=== PATIENT | male | born 1960 | race Caucasian/White ===

== ENCOUNTER 2018-08-11 12:20 | Day surgery (SDC) | payer OTHER ==
[~2018-08-11] VITALS: Ht 177.8 cm; Wt 98.0 kg
[2018-08-11 12:50] VITALS: BP 134/76; Ht 177.8 cm; Wt 98.0 kg
[2018-08-11] MEDS ORDERED: OXYCODONE-APAP1 TAB PO (18:52)
--- NOTE | 2018-08-14 12:06 | OP ---
PATIENT NAME: RIMA VANEGAS MEDICAL RECORD: [id number] :62 LOCATION:[facility] ADMISSION DATE: SURGEON: TAYLER ALVAREZ MD DATE OF OPERATION: 08/11/2018 PREOPERATIVE DIAGNOSES: 1. Adhesive capsulitis of the right shoulder. 2. Impingement syndrome of the right shoulder. POSTOPERATIVE DIAGNOSES: 1. Adhesive capsulitis of the right shoulder. 2. Impingement syndrome of the right shoulder. PROCEDURES: 1. Arthroscopic distal clavicle excision under separate incision. 2. Arthroscopic subacromial decompression, acromioplasty, and bursectomy. 2. Manipulation under anesthesia prior to operative intervention. SURGEON: Tayler Alvarez MD [employer] AUT[employer]OTIVE TECHNICIAN: Marcelo Mckeon APN INTRAOPERATIVE COMPLICATIONS: None. SUMMARY OF PATHOLOGIC FINDINGS: The patient did have a very good release with manipulation under anesthesia, consistent with the preoperative diagnosis. The patient also had signs of impingement consistent with preoperative diagnosis. OPERATIVE SUMMARY IN DETAIL: After obtaining the appropriate preoperative orthopedic surgery consent as well as anesthetic consultation, evaluation and clearance, the patient was brought to the operating room and placed on the operating table in supine position. After general laryngeal mask airway was administered, the patient was placed in a right lateral decubitus position. All pressure points were well padded to include down leg peroneal pad as well as axillary roll. The patient was held firmly to the operating table using the vacuum pack suction system. Right upper extremity and shoulder were then prepped and draped in routine sterile fashion. The arm was held in the Arthrex traction boom at 30 degrees of forward flexion, 30 degrees of abduction, and 10 pounds of traction laterally. Arthroscopy was established in the glenohumeral joint for posterior portal. Anterior portal was established in the anterior safe interval. Diagnostic arthroscopy revealed the above findings. Please note prior to starting the case; however, the scapula was stabilized and the shoulder was manipulated first in abduction, then external rotation and internal rotation with excellent release. When arthroscopy was established, there was an obvious hemarthrosis from manipulation. This was cleared in its entirety and diagnostic arthroscopy showed relatively well maintained glenohumeral joint. Attention was then turned to the subacromial space. Through an accessory lateral portal, the [place] tissue ablation system was utilized to denude the undersurface of the acromion of all soft tissue elements and release the coracoacromial ligament. A 5-0 barrel bur was used to perform acromioplasty at the level of acromioclavicular joint. Having completed this, through a separate arthroscopic incision anteriorly under arthroscopic visualization, the distal clavicle excision was performed 1 cm. Having completed this, all bursa was removed anteriorly, posteriorly, laterally as well as superiorly. Having completed this, arthroscopy portals were closed in routine interrupted fashion, again done OPERATIVE REPORT [id number] RIMA VANEGAS by Marcelo Mckeon. Sterile dressings were applied. The patient was awakened and taken to the recovery room in stable condition. All final needle and sponge counts were correct. TRANSINT:[id number] Voice Confirmation ID: [id number] DOCUMENT ID: [id number] ANTONIO MADSEN, TAYLER DORANTES at 1206 CC: [id number] DICTATION DATE: 08/14/18 0909 HAND SUTURE WINDER: 08/14/18 1130 [facility] 08/11/[address] [address]
== END 2018-08-11 20:30 | disposition home or self-care (01) ==
LOC: D.OPS 12:20 → D.PAN 14:00 → D.OPS 14:00 → D.PAN 16:55 → D.OPS 16:55 → D.PAN 22:15 → D.OPS 22:15
DX: M75.41 Impingement syndrome of right shoulder (principal); M75.01 Adhesive capsulitis of right shoulder; M75.121 Complete rotator cuff tear or rupture of right shoulder, not specified as traumatic

== ENCOUNTER 2019-11-09 06:39 | Day surgery (SDC) | payer OTHER ==
[~2019-11-09] VITALS: Ht 177.8 cm; Wt 104.3 kg
[~2019-11-09 06:39] MED LIST: OXYCODONE-APAP1 TAB PO
[2019-11-09 07:22] VITALS: BP 184/112; Ht 177.8 cm; Wt 104.3 kg
[2019-11-09] MEDS ORDERED: HYDROCODON-ACE1 EA10 PO (10:18)
--- NOTE | 2019-11-09 10:37 | NUR ---
PATIENT CARE ASSUMED AT THIS TIME; REPORT TAKEN FROM Brenda OPLK RN.
--- NOTE | 2019-11-09 13:40 | NUR ---
1200 VANCOMYCIN INFUSING PER ALARUS PUMP. Bautista AMADOR R.N.
--- NOTE | 2019-11-11 09:27 | OP ---
PATIENT NAME: RIMA VANEGAS MEDICAL RECORD: [id number] :62 LOCATION:[facility] ADMISSION DATE: SURGEON: TAYLER ALVAREZ MD DATE OF OPERATION: 11/09/2019 PREOPERATIVE DIAGNOSES: Adhesive capsulitis, left shoulder impingement syndrome. 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 PROCEDURES: 1. Arthroscopic biceps tenotomy of the left shoulder. 2. Arthroscopic distal clavicle excision of the left shoulder - 1 cm under separate incision. 3. Arthroscopic subacromial decompression with acromioplasty and bursectomy. 4. Manipulation of the left shoulder. SURGEON: Tayler Alvarez MD INTRAOPERATIVE COMPLICATIONS: None. SUMMARY OF PATHOLOGIC FINDINGS: After manipulation, a formal arthroscopy showed the above-mentioned findings. The patient was noted to have chondromalacia of the humeral head, but not of the glenoid ironically. OPERATIVE SUMMARY IN DETAIL: After obtaining the appropriate preoperative orthopedic surgery consent as well as anesthetic consultation, evaluation and clearance, the patient was brought to the operating room and placed on the operating table in a supine position. After adequate general laryngeal mask airway was administered, the patient was placed in a right lateral decubitus position. All pressure points were well padded to include down peroneal pad as well as axillary roll. The patient was held firmly to the operating table using the vacuum pack suction system. Left upper extremity and shoulder were then prepped and draped in routine sterile fashion. The arm was held in the Arthrex traction boom at 30 degrees of forward flexion, 30 degrees of abduction with 10 pounds of traction laterally. At this point, the appropriate timeout was taken and agreed upon by all given the patient's unique identifiers. Prior to establishing arthroscopy, the scapula was stabilized and the shoulder was then manipulated, first in abduction followed by external rotation and internal rotation. Excellent release was obtained. Having completed this, arthroscopy was then established in the glenohumeral joint. The glenohumeral joint arthroscopy did show the patient to have substantial amounts of chondromalacia of the humeral head itself. After the anterior portal was established and bleeding had been completely lavaged, the rotator cuff was evaluated and found to be without full thickness tearing on the articular aspect. The biceps tendon was in a substantial near complete torn shape. It was therefore released at the bicipital labral junction. Having completed this, attention was turned to the subacromial space. While on subacromial space, [place] tissue ablation system was utilized to denude the undersurface of the acromion of all soft tissue elements and release of the coracoacromial ligament. A 5-0 barrel bur was then used to perform acromioplasty at the level of acromioclavicular joint. Then, through a separate OPERATIVE REPORT [id number] RIMA VANEGAS anterior portal, under direct arthroscopic visualization, distal clavicle was excised for 1 cm. Lastly, all subacromial bursitis was removed. The rotator cuff was very carefully evaluated and had approximately 30% to 40% depth tearing, but not full thickness. Having completed this, arthroscopy portals were closed in routine interrupted fashion using 4-0 Prolene. Sterile dressings were applied. The patient was awakened and taken to recovery room in stable condition. All final needle and sponge counts were correct. TRANSINT:[id number] Voice Confirmation ID: [id number] DOCUMENT ID: [id number] ANTONIO MADSEN, TAYLER DORANTES at 0927 CC: [id number] DICTATION DATE: 11/10/19 1302 UTILITY TELLER: 11/10/19 1708 [facility] 11/09/19 [id number] [place] [address]
== END 2019-11-09 13:10 | disposition home or self-care (01) ==
LOC: D.OPS 06:39
PROVIDERS: ATTEND Orthopaedic Surgery
DX: M75.02 Adhesive capsulitis of left shoulder (principal); M75.42 Impingement syndrome of left shoulder; M25.512 Pain in left shoulder; M75.102 Unspecified rotator cuff tear or rupture of left shoulder, not specified as traumatic